=== PATIENT | female | born 1955 | race African-American/Black ===

== ENCOUNTER 2018-07-01 11:46 | Emergency (ER) | payer OTHER ==
[~2018-07-01] VITALS: Ht 170.2 cm; Wt 113.4 kg
[~2018-07-01 11:46] MED LIST: ALBU2.5V8 INH; AMOX1TAB58 PO; APIX5TAB PO; ASPI325T8 PO; AZIT250T6 PO; BECL8.7A6 IH; Diltiazem Hcl PO; FEXO180T16 PO; FISH1CAP PO; LOSA1TAB19 PO; LOVA40TA2 PO; MECL25TA PO; METF500T16 PO; MULT-208 PO; MULT-246 PO; OMEG300C PO; PRED50TA PO; RANI300C PO; VENTOLIN HFA18 GM INH
--- NOTE | 2018-07-01 12:13 | EKG ---
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
[2018-07-01 12:22] LABS: BASO # 0.1 x10^3/uL (0.0-0.2); BASO % 1 % (0-3); EOS # 0.1 x10^3/uL (0.0-0.7); EOS % 2 % (0-3); HEMATOCRIT 41.3 % (36.0-47.0); HEMOGLOBIN 14.2 g/dL (12.0-15.5); LYMPH # 3.6 x10^3/uL (1.0-4.8); LYMPH % 41 % (24-48); MEAN CORPUSCULAR HEMOGLOBIN 30 pg (25-35); MEAN CORPUSCULAR HGB CONC 34 g/dL (31-37); MEAN CORPUSCULAR VOLUME 88 fL (79-100); MONO # 0.6 x10^3/uL (0.0-1.1); MONO % 6 % (0-9); NEUT # 4.4 x10^3uL (1.8-7.7); NEUT % 51 % (31-73); PLATELET COUNT 330 x10^3/uL (140-400); RED BLOOD COUNT 4.67 x10^6/uL (3.50-5.40); RED CELL DISTRIBUTION WIDTH 12.8 % (11.5-14.5); WHITE BLOOD COUNT 8.8 x10^3/uL (4.0-11.0)
[2018-07-01 12:31] LABS: PROTHROMBIN TIME PATIENT 12.1 SEC (11.7-14.0)
--- NOTE | 2018-07-01 12:36 | RAD ---
EXAM: CHEST 1 VIEW History: Shortness of breath COMPARISON: 03/06/2016 TECHNIQUE: Single portable radiograph of the chest FINDINGS: The cardiac silhouette is unremarkable. The lungs are clear bilaterally. The costophrenic sulci are clear and well demarcated. IMPRESSION: No radiographic evidence of an acute cardiopulmonary process. Electronically signed by: Primo Cantrell MD (07/01/2018 12:31 PM) [facility]
[2018-07-01 12:44] LABS: CALCIUM 9.9 mg/dL (8.5-10.1); GFR 67.8; POTASSIUM 3.9 mmol/L (3.5-5.1)
[2018-07-01 12:46] LABS: D-DIMER 0.33 ug/mlFEU (0.00-0.50)
[2018-07-01 12:48] LABS: ALBUMIN 4.1 g/dL (3.4-5.0); ALBUMIN/GLOBULIN RATIO 1.1 (1.0-1.7); MAGNESIUM 2.4 mg/dL (1.8-2.4); TOTAL BILIRUBIN 0.4 mg/dL (0.2-1.0)
[2018-07-01] MEDS ORDERED: APIXABAN 5 MG TABLET. PO STA (13:35)
[2018-07-01 13:47] VITALS: BP 152/83
--- NOTE | 2018-07-01 13:47 | PHYS DOC ---
Past Medical History Past Medical History: A-Fib, Asthma, CVA, Diabetes-Type II, High Cholesterol, Hypertension, Stroke Past Surgical History: Cholecystectomy, Tonsillectomy Alcohol Use: None Drug Use: None Adult General Chief Complaint Chief Complaint: Palpitations [facility] Patient is a 62 year old F WITH CC OF PALPITATIONS, she felt this last night she felt a couple of time she woke up at 2 in the morning her heart was racing she didn't keep her track of her heart rate but it was going very fast she felt a little short of breath when she walked to the bathroom she was feeling just like her heart was racing no other chest pain. The symptoms resolved within a came back this morning and they resolved on the way to the emergency room but she was worried she has a history of atrial fibrillation she does take Cardizem she is on aspirin only because her insurance would not cover ELIQUIS she tells me. SYMPTOMS NOW RESOLVED Review of Systems Review of Systems Constitutional: Denies fever or chills [] Cardiovascular: No additional information not addressed in [facility] [] GI: Denies abdominal pain, nausea, vomiting, bloody stools or diarrhea [] : Denies dysuria or hematuria [] Musculoskeletal: Denies back pain or joint pain [] All other systems were reviewed and found to be within normal limits, except as documented in this note. Allergies Allergies Allergies Coded Allergies Type Severity Reaction Last Updated Verified ALBERT Inhibitors Allergy Intermediate cough 03/18/15 Yes levofloxacin Allergy Intermediate Rash 03/15/15 Yes Physical Exam Physical Exam Constitutional: Well developed, well nourished, no acute distress, non-toxic appearance. [] HENT: Normocephalic, atraumatic, bilateral external ears normal, oropharynx moist, no oral exudates, nose normal. [] Eyes: PERRLA, EOMI, conjunctiva normal, no discharge. [] Neck: Normal range of motion, no tenderness, supple, no stridor. [] Cardiovascular:Heart rate regular rhythm, no murmur [] Lungs & Thorax: Bilateral breath sounds clear to auscultation [] Abdomen: Bowel sounds normal, soft, no tenderness, no masses, no pulsatile masses. [] Skin: Warm, dry, no erythema, no rash. [] Back: No tenderness, no CVA tenderness. [] Extremities: No tenderness, no cyanosis, no clubbing, ROM intact, no edema. [] Neurologic: Alert and oriented X 3, normal motor function, normal sensory function, no focal deficits noted. [] Psychologic: Affect normal, judgement normal, mood normal. [] Current Patient Data Vital Signs Vital Signs Date Time Temp Pulse Resp B/P (MAP) Pulse Ox O2 Delivery O2 Flow Rate FiO2 07/01/18 13:20 78 145/77 (99) 96 Room Air 07/01/18 11:54 97.8 20 97.8 Lab Values Laboratory Tests Test 07/01/18 12:10 White Blood Count 8.8 x10^3/uL (4.0-11.0) Red Blood Count 4.67 x10^6/uL (3.50-5.40) Hemoglobin 14.2 g/dL (12.0-15.5) Hematocrit 41.3 % (36.0-47.0) Mean Corpuscular Volume 88 fL (79-100) Mean Corpuscular Hemoglobin 30 pg (25-35) Mean Corpuscular Hemoglobin Concent 34 g/dL (31-37) Red Cell Distribution Width 12.8 % (11.5-14.5) Platelet Count 330 x10^3/uL (140-400) Neutrophils (%) (Auto) 51 % (31-73) Lymphocytes (%) (Auto) 41 % (24-48) Monocytes (%) (Auto) 6 % (0-9) Eosinophils (%) (Auto) 2 % (0-3) Basophils (%) (Auto) 1 % (0-3) Neutrophils # (Auto) 4.4 x10^3uL (1.8-7.7) Lymphocytes # (Auto) 3.6 x10^3/uL (1.0-4.8) Monocytes # (Auto) 0.6 x10^3/uL (0.0-1.1) Eosinophils # (Auto) 0.1 x10^3/uL (0.0-0.7) Basophils # (Auto) 0.1 x10^3/uL (0.0-0.2) Prothrombin Time 12.1 SEC (11.7-14.0) Prothrombin Time INR 0.9 (0.8-1.1) D-Dimer (Bharti) 0.33 ug/mlFEU (0.00-0.50) Sodium Level 141 mmol/L (136-145) Potassium Level 3.9 mmol/L (3.5-5.1) Chloride Level 102 mmol/L (98-107) Carbon Dioxide Level 29 mmol/L (21-32) Anion Gap 10 (6-14) Blood Urea Nitrogen 14 mg/dL (7-20) Creatinine 1.0 mg/dL (0.6-1.0) Estimated GFR (Cockcroft-Gault) 67.8 BUN/Creatinine Ratio 14 (6-20) Glucose Level 132 mg/dL (70-99) H Calcium Level 9.9 mg/dL (8.5-10.1) Magnesium Level 2.4 mg/dL (1.8-2.4) Total Bilirubin 0.4 mg/dL (0.2-1.0) Aspartate Amino Transferase (AST) 20 U/L (15-37) Alanine Aminotransferase (ALT) 40 U/L (14-59) Alkaline Phosphatase 118 U/L (46-116) H Troponin I Quantitative < 0.017 ng/mL (0.000-0.055) SQ-Fnm-E-Type Natriuretic Peptide 8 pg/mL (0-124) Total Protein 8.0 g/dL (6.4-8.2) Albumin 4.1 g/dL (3.4-5.0) Albumin/Globulin Ratio 1.1 (1.0-1.7) Laboratory Tests 07/01/18 12:10 Laboratory Tests 07/01/18 12:10 EKG EKG []EKG shows a I suspect most likely a normal sinus rhythm there is somewhat of a poor baseline but I clearly see P waves it is regular no STEMI Radiology/Procedures Radiology/Procedures [] Impressions: EXAM: CHEST 1 VIEW History: Shortness of breath COMPARISON: 03/06/2016 TECHNIQUE: Single portable radiograph of the chest FINDINGS: The cardiac silhouette is unremarkable. The lungs are clear bilaterally. The costophrenic sulci are clear and well demarcated. IMPRESSION: No radiographic evidence of an acute cardiopulmonary process. Electronically signed by: Primo Cantrell MD (07/01/2018 12:31 PM) [facility] DICTATED and SIGNED BY: PRIMO CANTRELL MD DATE: 07/01/18 1221 Course & Med Decision Making Course & Med Decision Making Pertinent Labs and Imaging studies reviewed. (See chart for details) []D-dimer labs normal troponin negative patient is in sinus for some throughout the emergency room visit. I did discuss witH KARINA FROM CARDIOLOGY, HE WAS ABLE TO CALL AND MAKE APPOINTMENT FOR 945 AM TOMORROW. I DID GIVE SINGLE DOSE ELIQUIS IN THE ER. Dragon Disclaimer Dragon Disclaimer This electronic medical record was generated, in whole or in part, using a voice recognition dictation system. Departure Departure Impression: Primary Impression: Palpitations Disposition: HOME, SELF-CARE Condition: STABLE Referrals: CORRY BROWNE (PCP) CLOVIS MAYER MD Jul 01, 2018 13:47
== END 2018-07-01 14:02 | disposition home or self-care (01) ==
LOC: ER 11:46
DX: R00.2 Palpitations (principal); R06.02 Shortness of breath; I48.91 Unspecified atrial fibrillation; J45.909 Unspecified asthma, uncomplicated; E11.9 Type 2 diabetes mellitus without complications; I10 Essential (primary) hypertension; E78.00 Pure hypercholesterolemia, unspecified; Z90.49 Acquired absence of other specified parts of digestive tract; Z86.73 Personal history of transient ischemic attack (TIA), and cerebral infarction without residual deficits; Z88.1 Allergy status to other antibiotic agents; Z88.8 Allergy status to other drugs, medicaments and biological substances
CPT/HCPCS: 36415; 71045; 80053; 83735; 83880; 84484; 85025; 85379; 85610; 93005; 99284-25

== ENCOUNTER → 2018-08-11 | Outpatient (CLI) | payer OTHER ==
--- NOTE | 2018-08-11 09:57 | CARD ---
MR#: [id number] Date of Study: 08/11/2018 Ordering Physician: LYUDMILA CAI, Referring Physician: LYUDMILA CAI, Tech: Carmen Christopher APPROVED REPORT EXAM: Two-dimensional and M-mode echocardiogram with Doppler and color Doppler. Other Information Quality : AverageHR: 75bpm INDICATION Dyspnea RISK FACTORS Hypertension Hyperlipidemia Diabetes 2D DIMENSIONS RVDd3.8 (2.9-3.5cm)Left Atrium(2D)3.4 (1.6-4.0cm) IVSd1.1 (0.7-1.1cm)Aortic Root(2D)2.6 (2.0-3.7cm) LVDd4.7 (3.9-5.9cm)LVOT Diameter2.3 (1.8-2.4cm) PWd1.3 (0.7-1.1cm)LVDs2.7 (2.5-4.0cm) FS (%) 41.1 %SV72.7 ml LVEF(%)72.0 (>50%) Aortic Valve AoV Peak Indra.180.9cm/sAoV VTI40.0cm AO Peak GR.13.1mmHgLVOT Peak Indra.140.3cm/s LVOT VTI 31.42cmAO Mean GR.8mmHg CARLOS (VMAX)2.07uu9LVL (VTI)3.22cm2 Mitral Valve MV E Ctmdwsnn079.7cm/sMV DECEL AJUB102ys MV A Vuwvuthv708.1cm/sMV OBX80my E/A Ratio0.8MVA (PHT)4.25cm2 TDI E/Lateral E'11.9E/Medial E'14.1 Pulmonary Valve PV Peak Cofykilw568.0cm/sPV Peak Grad.5mmHg Tricuspid Valve TR P. Mwtbmxoc092hn/sRAP RWGSOBXX6rcCh TR Peak Gr.87qvGxQIEG24bdKt Pulmonary Vein S1 Iaxxtchm50.5cm/sD2 Eswkkros89.4cm/s PVa doubsjfu993rxta LEFT VENTRICLE The left ventricle is normal size. There is mild to moderate concentric left ventricular hypertrophy. The left ventricular systolic function is normal. The Ejection Fraction is 55-60%. There is normal L V segmental wall motion. Transmitral Doppler flow pattern is Grade I-abnormal relaxation pattern. RIGHT VENTRICLE The right ventricle is normal size. There is normal right ventricular wall thickness. The right ventr icular systolic function is normal. ATRIA The left atrium is mildly dilated. The right atrium is borderline dilated. The interatrial septum is intact with no evidence for an atrial septal defect or patent foramen ovale as noted on 2-D or Dopple r imaging. AORTIC VALVE The aortic valve is normal in structure and function. Doppler and Color Flow revealed no significant aortic regurgitation. There is no significant aortic valvular stenosis. MITRAL VALVE The mitral valve is normal in structure and function. There is no evidence of mitral valve prolapse. There is no mitral valve stenosis. Doppler and Color-flow revealed trace mitral regurgitation. TRICUSPID VALVE The tricuspid valve is normal in structure and function. Doppler and Color Flow revealed mild tricusp id regurgitation with an estimated PAP of 36 mmHg. There is no tricuspid valve stenosis. PULMONIC VALVE The pulmonic valve is not well visualized. Doppler and Color Flow revealed no pulmonic valvular regur gitation. GREAT VESSELS The aortic root is normal in size. The IVC was not visualized. PERICARDIAL EFFUSION There is no evidence of significant pericardial effusion. Critical Notification Critical Value: No <Conclusion> The left ventricular systolic function is normal. The Ejection Fraction is 55-60%. There is normal LV segmental wall motion. Transmitral Doppler flow pattern is Grade I-abnormal relaxation pattern. Trace mitral regurgitation. Mild tricuspid regurgitation with an estimated PAP of 36 mmHg. There is no evidence of significant pericardial effusion. Signed by : Hunter Jett, Electronically Approved : 08/11/2018 09:56:58
== END | disposition home or self-care (01) ==
LOC: NM 07:28
PROVIDERS: ATTEND Internal Medicine Cardiovascular Disease
DX: I36.1 Nonrheumatic tricuspid (valve) insufficiency (principal); I11.9 Hypertensive heart disease without heart failure; E78.5 Hyperlipidemia, unspecified; E11.9 Type 2 diabetes mellitus without complications; R00.8 Other abnormalities of heart beat
CPT/HCPCS: 93306

== ENCOUNTER 2019-03-09 13:24 | Emergency (ER) | payer OTHER ==
[~2019-03-09] VITALS: Ht 167.6 cm; Wt 122.5 kg
[2019-03-09] MEDS ORDERED: NAPROXEN 500 MG TABLET PO STA (13:52)
[2019-03-09] MEDS ORDERED: HYDROcodone/APAP 5/325MG 1 TAB TABLET PO ONE (14:00)
[2019-03-09 14:13] VITALS: BP 163/88
--- NOTE | 2019-03-09 14:14 | RAD ---
Examination: ANKLE RIGHT 3V History: Pain, fell Comparison/Correlation: None Findings: Total of 3 images of the right ankle were obtained. Soft tissue swelling about the malleoli noted. Ankle joint mortise is unremarkable. Small calcaneal spur is present. Subtle avulsion fracture involving the lateral malleolus is questioned. Bony densities adjacent to the medial malleolus are of indeterminate significance and age. Impression: Possibility of avulsion fracture involving the lateral malleolus is raised but of indeterminate age. Soft tissue swelling. Electronically signed by: Vishal Teran MD (03/09/2019 2:11 PM) [facility]
[2019-03-09] MEDS ORDERED: HYDR-3164 PO (14:55)
--- NOTE | 2019-03-09 14:55 | PHYS DOC ---
Past Medical History Past Medical History: A-Fib, Asthma, CVA, Diabetes-Type II, High Cholesterol, Hypertension, Stroke Past Surgical History: Cholecystectomy, Tonsillectomy Alcohol Use: None Drug Use: None Adult General Chief Complaint Chief Complaint: ANKLE PROBLEM HPI HPI Patient is a 63 year old male with history of diabetes type 2, hypertension, high cholesterol, A. fib, who presents to the ED today complaining 10 out of 10 left lateral ankle pain that began today after she stepped on uneven surface and twisted her left ankle. Patient states the pain is worse on weight bearing. Denies anything specifically alleviating the pain. Describes the pain as sharp and constant. Review of Systems Review of Systems Constitutional: Denies fever or chills [] Musculoskeletal: Reports left ankle pain Integument: Denies rash or skin lesions [] Neurologic: Denies headache, focal weakness or sensory changes [] All other systems were reviewed and found to be within normal limits, except as documented in this note. Current Medications Current Medications Current Medications Medications (Trade) Dose Ordered Sig/Rebecca Start Time Stop Time Status Last Admin Dose Admin Acetaminophen/ Hydrocodone Bitart (Lortab 5/325) 2 tab 1X ONCE 03/09/19 14:00 03/09/19 14:01 DC 03/09/19 14:20 2 TAB Naproxen (Naprosyn) 500 mg 1X STAT 03/09/19 13:52 03/09/19 13:53 DC 03/09/19 14:20 500 MG Allergies Allergies Allergies Coded Allergies Type Severity Reaction Last Updated Verified ALBERT Inhibitors Allergy Intermediate cough 03/18/15 Yes levofloxacin Allergy Intermediate Rash 03/15/15 Yes Physical Exam Physical Exam Constitutional: Well developed, well nourished, no acute distress, non-toxic appearance. [] Skin: Warm, dry, no erythema, no rash. [] Back: No tenderness, no CVA tenderness. [] Extremities: Left ankle with moderate amount of soft tissue swelling specifically on the lateral aspect. Tenderness on palpation of the left lateral ankle. Limited range of motion to the left ankle due to pain. +2 left pedal pulse. Cap refill less than 2 seconds the left lower extremity. Neurologic: Alert and oriented X 3, normal motor function, normal sensory function, no focal deficits noted. [] Psychologic: Affect normal, judgement normal, mood normal. [] Current Patient Data Vital Signs Vital Signs Date Time Temp Pulse Resp B/P (MAP) Pulse Ox O2 Delivery O2 Flow Rate FiO2 03/09/19 14:13 98.2 80 18 163/88 (113) 96 Room Air 98.2 EKG EKG [] Radiology/Procedures Radiology/Procedures []PROCEDURE: ANKLE RIGHT 3V Examination: ANKLE RIGHT 3V History: Pain, fell Comparison/Correlation: None Findings: Total of 3 images of the right ankle were obtained. Soft tissue swelling about the malleoli noted. Ankle joint mortise is unremarkable. Small calcaneal spur is present. Subtle avulsion fracture involving the lateral malleolus is questioned. Bony densities adjacent to the medial malleolus are of indeterminate significance and age. Impression: Possibility of avulsion fracture involving the lateral malleolus is raised but of indeterminate age. Soft tissue swelling. Electronically signed by: Vishal Kasper MD (03/09/2019 2:11 PM) [facility] DICTATED and SIGNED BY: VISHAL KASPER MD DATE: 03/09/19 1411 Course & Med Decision Making Course & Med Decision Making Pertinent Labs and Imaging studies reviewed. (See chart for details) This is a 63-year-old female patient presenting to the ED today with left ankle pain after twisting her ankle. Left ankle x-rays interpreted by radiologist were noted for possible avulsion fracture of the lateral malleolus age indeterminate. Patient was placed in a stirrup and posterior leg splint by the ED RN, neurovascular exam done by me is intact. Ice elevation encouraged. Follow-up with orthopedic doctor in the next 1 week. Dragon Disclaimer Dragon Disclaimer This electronic medical record was generated, in whole or in part, using a voice recognition dictation system. Departure Departure Impression: Primary Impression: Avulsion fracture of lateral malleolus Disposition: HOME, SELF-CARE Condition: STABLE Referrals: CORRY BROWNE (PCP) LUIS CASTILLO MD follow up in the course of this week Patient Instructions: Ankle Fracture with Rehab-SportsMed Additional Instructions: You were evaluated in the emergency room and noted to have an avulsion fracture of the left lateral malleolus/left ankle ice and elevate the extremity. Take the prescribed pain medicine as needed for pain. Please contact the provided orthopedic doctor and set up a follow-up appointment in the course of this week. Scripts Hydrocodone/Apap 5-325 (NORCO 5-325 TABLET) 1 Each Tablet 1 TAB PO Q6HRS, #25 TAB Prov: TEAGAN SEBASTIAN APRN 03/09/19 Problem Qualifiers Primary Impression: Avulsion fracture of lateral malleolus Encounter type: initial encounter Fracture type: closed Laterality: left Qualified Codes: S82.62XA - Displaced fracture of lateral malleolus of left fibula, initial encounter for closed fracture TEAGAN SEBASTIAN APRN Mar 09, 2019 14:55
--- NOTE | 2019-03-10 09:55 | RAD ---
Examination: ANKLE LEFT 3V History: Pain, fell Comparison/Correlation: None Findings: Total of 3 images of the left ankle were obtained. Soft tissue swelling about the malleoli noted. Ankle joint mortise is unremarkable. Small calcaneal spur is present. Subtle avulsion fracture involving the lateral malleolus is questioned. Bony densities adjacent to the medial malleolus are of indeterminate significance and age. Impression: Possibility of avulsion fracture involving the lateral malleolus is raised but of indeterminate age. Soft tissue swelling. MTDD
== END 2019-03-09 15:22 | disposition home or self-care (01) ==
LOC: ER 13:24
DX: S82.62XA Displaced fracture of lateral malleolus of left fibula, initial encounter for closed fracture (principal); I48.91 Unspecified atrial fibrillation; J45.909 Unspecified asthma, uncomplicated; E11.9 Type 2 diabetes mellitus without complications; E78.00 Pure hypercholesterolemia, unspecified; I10 Essential (primary) hypertension; Z86.73 Personal history of transient ischemic attack (TIA), and cerebral infarction without residual deficits; Z88.1 Allergy status to other antibiotic agents; Z88.8 Allergy status to other drugs, medicaments and biological substances; W18.31XA Fall on same level due to stepping on an object, initial encounter; Y93.89 Activity, other specified; Y92.89 Other specified places as the place of occurrence of the external cause; Y99.8 Other external cause status
CPT/HCPCS: 29515; 73610; 99284

== ENCOUNTER → 2019-09-22 | Outpatient (CLI) | payer BC ==
[~2019-09-22] MED LIST changes: +HYDR-3164 PO
--- NOTE | 2019-09-22 13:18 | KCIC ---
Left shoulder 5 views: Reason for examination: Primary osteoarthritis of the left shoulder with pain for 6 to 12 months and decreased range of motion. No acute fracture or dislocation is evident. Bone density appears be normal and no abnormal periosteal reaction is seen. Joint spaces appear to be fairly well-maintained. There is however some bony density around the inferior margin of the humeral head. This could represent hypertrophic changes but a joint body cannot be excluded. There is also a small joint body anterior to the glenoid. IMPRESSION: Bone density on the inferior margin of the humeral head which may represent hypertrophic changes off the humeral head but joint body cannot be excluded. Additional small joint body anterior to the glenoid. Further evaluation with CT may be helpful. Electronically signed by: Niru Wolfe MD (09/22/2019 1:15 PM) [id number]
== END | disposition home or self-care (01) ==
LOC: KCIC 11:54
PROVIDERS: ATTEND Physician Assistant
DX: M19.012 Primary osteoarthritis, left shoulder (principal)
CPT/HCPCS: 73030

== ENCOUNTER → 2021-01-09 | Outpatient (CLI) | payer BC ==
[~2021-01-09] MED LIST changes: +LIDOCAINE 1% Multi-Dose 20 ML VIAL. INJ ONE; +LIDOCAINE 2%/EPI 1:100,000 20 ML VIAL. INJ ONE
--- NOTE | 2021-01-09 17:15 | RAD ---
MG STERO NEEDLE LOC BRST RT, MG DIAGNOSTICUNILAT MAMMO Clinical Indication: Reason: RIGHT BREAST CALCIFICATIONS, lower inner right breast. Comparison: Bilateral diagnostic mammogram December 14, 2020, [facility]. Findings: The risks including bleeding, infection, damage to blood vessel, and pain; alternatives, and benefits of the procedure are discussed with the patient. Written informed consent is obtained. A timeout pro cedure was performed. Patient is positioned in upright position. A medial approach is utilized. Stereotactic views were obt ained. Skin site is clean in normal sterile fashion. 1% lidocaine is used for superficial anesthesia. 1% lidocaine with epinephrine is used for deep anesthesia. Using sterile technique and stereotactic guidance, vacuum assisted core biopsy samples were obtained. Biopsy marker is deployed. The needle is removed. Hemostasis achieved. Patient tolerated the procedu re well. There is no immediate complication. Specimen radiograph demonstrates microcalcifications in the sample. Postprocedure CC and ML mammogram views obtained. The biopsy clip is at the location of the previously seen microcalcifications. IMPRESSION: Stereotactic guided biopsy of microcalcifications. Pathology is pending. Electronically signed by: Mo Khanna MD (01/09/2021 5:13 PM) [id number]
--- NOTE | 2021-01-10 16:07 | PATHOLOGY ---
[facility] Accession Number: [id number] . 01 Material submitted: . breast - RIGHT BREAST TISSUE. Modifiers: right . 01 Clinical history: . RIGHT BREAST CALCIFICATIONS RIGHT BREAST STEREOTACTIC BIOPSY . 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 (JPM:pit; 01/10/2021) [facility] [place] 01/10/2021 1555 Local . 02 Comment: There is no atypia or evidence of malignancy. (JPM:pit; 01/10/2021) . 02 Electronically signed: . Dallas Leong MD, Pathologist NPI- [id number] . 01 Gross description: . The specimen is received in formalin, labeled "Serafin, Tita O and right breast". It consists of multiple yellow-white, irregular fibrofatty soft tissue segment measuring 2.7 x 1.5 x 0.3 cm in aggregate. The specimen is entirely submitted in A1-A3. . The specimen is removed from the patient at 1335 and placed in formalin at 1345 on 01/09/2021. The specimen is removed from formalin at 2340. Total time formalin: 10 hours 5 minutes (MRF; 01/09/2021) MFE/MFE 01/09/2021 1801 Local . 02 Pathologist provided ICD-10: D24.1, N60.41, N60.31 . 02 CPT . 291299 Specimen Comment: A courtesy copy of this report has been sent to [phone], [phone] Specimen Comment: [id number] Specimen Comment: Report sent to / DR SARMIENTO Performed at: [address] [place] [address] [address] [facility] [address], [place], [place] [id number] MD Jc Núñez MD Phone: [phone] Performed at: [address] [id number] MD Dallas Leong MD Phone: [phone]
== END | disposition home or self-care (01) ==
LOC: MAMMO 12:14
PROVIDERS: ATTEND Surgery
DX: R92.1 Mammographic calcification found on diagnostic imaging of breast (principal); R92.8 Other abnormal and inconclusive findings on diagnostic imaging of breast; I10 Essential (primary) hypertension; E78.00 Pure hypercholesterolemia, unspecified; I48.91 Unspecified atrial fibrillation; E11.9 Type 2 diabetes mellitus without complications; K21.9 Gastro-esophageal reflux disease without esophagitis; M19.90 Unspecified osteoarthritis, unspecified site; J45.909 Unspecified asthma, uncomplicated; G47.30 Sleep apnea, unspecified; Z79.82 Long term (current) use of aspirin; Z79.84 Long term (current) use of oral hypoglycemic drugs; Z79.899 Other long term (current) drug therapy; Z98.890 Other specified postprocedural states; Z88.1 Allergy status to other antibiotic agents; Z82.49 Family history of ischemic heart disease and other diseases of the circulatory system; Z83.3 Family history of diabetes mellitus
CPT/HCPCS: 19081; 77065

== ENCOUNTER → 2021-06-30 | Outpatient (CLI) | payer BC ==
[~2021-06-30] MED LIST changes: -LIDOCAINE 1% Multi-Dose 20 ML VIAL. INJ ONE; -LIDOCAINE 2%/EPI 1:100,000 20 ML VIAL. INJ ONE
--- NOTE | 2021-06-30 11:50 | CARD ---
MR#: [id number] Date of Study: 06/30/2021 Ordering Physician: LYUDMILA CAI, Referring Physician: LYUDMILA CAI, Tech: Chaparrita Kamara [facility] APPROVED REPORT EXAM: Two-dimensional and M-mode echocardiogram with Doppler and color Doppler. Other Information Quality : AverageHR: 99bpm Rhythm : NSR INDICATION RISK FACTORS Hypertension Obesity Hyperlipidemia 2D DIMENSIONS RVDd3.6 (2.9-3.5cm)Left Atrium(2D)3.5 (1.6-4.0cm) IVSd1.1 (0.7-1.1cm)Aortic Root(2D)3.0 (2.0-3.7cm) LVDd4.6 (3.9-5.9cm)LVOT Diameter2.1 (1.8-2.4cm) PWd1.1 (0.7-1.1cm)LVDs2.6 (2.5-4.0cm) FS (%) 42.8 %SV72.3 ml LVEF(%)73.9 (>50%) Aortic Valve AoV Peak Indra.230.1cm/sAoV VTI44.7cm AO Peak GR.21.2mmHgLVOT Peak Indra.156.0cm/s AO Mean GR.9mmHgAVA (VMAX)2.41cm2 Mitral Valve MV E Lzmbnabv63.7cm/s Pulmonary Valve PV Peak Jhqujnyd226.3cm/s Tricuspid Valve TR P. [place]151bj/sTR Peak Gr.31mmHg LEFT VENTRICLE The left ventricle is normal size. There is mild concentric left ventricular hypertrophy. The left ve ntricular systolic function is normal. Estimated ejection fraction 65%. There is normal LV segmenta l wall motion. Transmitral Doppler flow pattern is Grade I-abnormal relaxation pattern. RIGHT VENTRICLE The right ventricle is normal size. There is normal right ventricular wall thickness. The right ventr icular systolic function is normal. ATRIA The left atrium size is normal. The right atrium size is normal. The interatrial septum is intact wit h no evidence for an atrial septal defect or patent foramen ovale as noted on 2-D or Doppler imaging. AORTIC VALVE The aortic valve is normal in structure and function. Doppler and Color Flow revealed trace aortic re gurgitation. There is no significant aortic valvular stenosis. MITRAL VALVE The mitral valve is normal in structure and function. There is no evidence of mitral valve prolapse. There is no mitral valve stenosis. Doppler and Color-flow revealed trace mitral regurgitation. TRICUSPID VALVE The tricuspid valve is normal in structure and function. Doppler and Color Flow revealed mild tricusp id regurgitation. Estimated PAP 35 mmHg. There is no tricuspid valve stenosis. PULMONIC VALVE The pulmonary valve is normal in structure and function. GREAT VESSELS The aortic root is normal in size. The ascending aorta is normal in size. The IVC is normal in size a nd collapses >50% with inspiration. PERICARDIAL EFFUSION There is no evidence of significant pericardial effusion. Critical Notification Critical Value: No <Conclusion> The left ventricular systolic function is normal. Estimated ejection fraction 65%. There is normal LV segmental wall motion. Trace mitral regurgitation. Mild tricuspid regurgitation. Estimated PAP 35 mmHg. There is no evidence of significant pericardial effusion. Signed by : Hunter Jett, Electronically Approved : 06/30/2021 11:50:20
== END ==
LOC: ECHO 09:16
PROVIDERS: ATTEND Internal Medicine Cardiovascular Disease
DX: I36.1 Nonrheumatic tricuspid (valve) insufficiency (principal); I51.7 Cardiomegaly; I48.0 Paroxysmal atrial fibrillation
CPT/HCPCS: 93306

== ENCOUNTER 2021-10-26 11:27 | Emergency (ER) | payer BC ==
[~2021-10-26] VITALS: Ht 170.2 cm; Wt 113.6 kg
[~2021-10-26 11:27] MED LIST changes: +FEXO-213 PO; -FEXO180T16 PO
[2021-10-26 12:11] LABS: BASO # 0.1 x10^3/uL (0.0-0.2); BASO % 1 % (0-3); EOS # 0.2 x10^3/uL (0.0-0.7); EOS % 2 % (0-3); HEMATOCRIT 37.6 % (36.0-47.0); HEMOGLOBIN 12.5 g/dL (12.0-15.5); LYMPH # 2.5 x10^3/uL (1.0-4.8); LYMPH % 32 % (24-48); MEAN CORPUSCULAR HEMOGLOBIN 30 pg (25-35); MEAN CORPUSCULAR HGB CONC 33 g/dL (31-37); MEAN CORPUSCULAR VOLUME 89 fL (79-100); MONO # 0.7 x10^3/uL (0.0-1.1); MONO % 9 % (0-9); NEUT # 4.5 x10^3/uL (1.8-7.7); NEUT % 56 % (31-73); PLATELET COUNT 336 x10^3/uL (140-400); RED BLOOD COUNT 4.22 x10^6/uL (3.50-5.40); RED CELL DISTRIBUTION WIDTH 13.7 % (11.5-14.5); WHITE BLOOD COUNT 7.9 x10^3/uL (4.0-11.0)
[2021-10-26 12:29] LABS: CALCIUM 9.5 mg/dL (8.5-10.1); CREATININE 0.7 mg/dL (0.6-1.0)
[2021-10-26] MEDS ORDERED: IV NORMAL SALINE 1000ML BAG 1,000 ML IV ONE (12:30)
--- NOTE | 2021-10-26 12:31 | RAD ---
EXAM: Chest, single view. HISTORY: Presyncope. COMPARISON: 07/01/2018 FINDINGS: A frontal view of the chest is obtained. There is no infiltrate, pleural effusion or pneumo thorax. The heart is normal in size. IMPRESSION: No acute pulmonary finding. Electronically signed by: Lanie Cordova MD (10/26/2021 12:28 PM) [id number]
[2021-10-26 12:37] LABS: ALBUMIN 3.9 g/dL (3.4-5.0); MAGNESIUM 2.2 mg/dL (1.8-2.4); TOTAL BILIRUBIN 0.5 mg/dL (0.2-1.0); TOTAL PROTEIN 7.7 g/dL (6.4-8.2)
[2021-10-26] MEDS ORDERED: IOHEXOL 350 MG/ML 100 ML VIAL. IV ONE (13:15)
[2021-10-26] MEDS ORDERED: CONTRAST GIVEN. MC PRN (13:30)
--- NOTE | 2021-10-26 14:35 | RAD ---
EXAMINATION: CTA Chest With IV contrast INDICATION:66 years, Female, shortness of breath, presyncope, evaluate for pulmonary embolism. COMPARISON: None. TECHNIQUE: Spiral CTA was obtained from the jugular notch through the posterior costophrenic recess. 3-D MIPS, sagittal and coronal reformats were obtained. Exposure: One or more of the following individualized dose reduction techniques were utilized for thi s examination: 1. Automated exposure control 2. Adjustment of the mA and/or kV according to patient size 3. Use of iterative reconstruction technique. FINDINGS: LUNGS/PLEURA: Central airways are patent. Dependent subsegmental atelectasis in bibasilar lungs. No f ocal consolidation, pleural effusion or pneumothorax. No suspicious pulmonary nodule. Calcified granu ambar in the left lower lobe MEDIASTINUM: No pathologic mediastinal or hilar adenopathy. The thoracic aorta and pulmonary arteries are normal in caliber. Evaluation for pulmonary embolism is limited due to contrast bolus timing. No evidence of pulmonary embolism to the proximal segmental levels. The heart is normal in size. No per icardial effusion. Mild calcified coronary atherosclerosis. The visualized thyroid and the esophagus are unremarkable. AXILLA/SOFT TISSUE: No supraclavicular or axillary adenopathy. Regional soft tissues are within ilir l limits. UPPER ABDOMEN: Diffuse hepatic steatosis. Indeterminate 2.3 cm left adrenal nodule. Cholecystectomy. BONES: No evidence of acute fractures or aggressive osseous lesions. Multilevel degenerative changes in the spine. IMPRESSION: 1. Evaluation for pulmonary embolism is limited due to contrast bolus timing. No pulmonary embolism to the proximal segmental levels. 2. Diffuse hepatic steatosis. 3. Indeterminate 2.3 cm left adrenal nodule. Further evaluation could be obtained with CT or MRI adr enal mass protocol. Electronically signed by: Andres Fernandes MD (10/26/2021 2:33 PM) [id number]
[2021-10-26 15:00] VITALS: BP 142/67
--- NOTE | 2021-10-26 15:37 | PHYS DOC ---
Past Medical History Past Medical History: A-Fib, Asthma, CVA, Diabetes-Type II, High Cholesterol, Hypertension, Stroke Past Surgical History: Cholecystectomy, Tonsillectomy Additional Past Surgical Histo: RIGHT KNEE Smoking Status: Never Smoker Alcohol Use: None Drug Use: None General Adult EDM: Chief Complaint: DIZZY/LIGHT HEADED HPI: HPI: Patient is a 66 year old female with history of atrial fibrillation who presents with presyncopal episode while driving soon before presenting to the emergency department. Patient is at baseline while in the emergency department. Patient states that while she was driving, she became lightheaded and she felt short of breath. States that she was able to pull off the road and stop. She called EMS from that location. She her vital signs are stable however she is a little bit tachycardic, she is not in atrial fibrillation. She does have a history of atrial fibrillation for which she takes Eliquis for. Otherwise she is being followed by Dr. Kendall and Dr. Jorge. Patient states that the episode only lasted 10 seconds. Otherwise she is hemodynamically stable. No eliciting or alleviating factors. No concurrent symptoms. Review of Systems: Review of Systems: Constitutional: Denies fever or chills. [] Eyes: Denies change in visual acuity. [] HENT: Denies nasal congestion or sore throat. [] Respiratory: Denies cough, + shortness of breath. [] Cardiovascular: Denies chest pain or edema. [] GI: Denies abdominal pain, nausea, vomiting, bloody stools or diarrhea. [] : Denies dysuria. [] Musculoskeletal: Denies back pain or joint pain. [] Integument: Denies rash. [] Neurologic: Denies headache, focal weakness or sensory changes. [] Endocrine: Denies polyuria or polydipsia. [] Lymphatic: Denies swollen glands. [] Psychiatric: Denies depression or anxiety. [] Heart Score: C/O Chest Pain: No Risk Factors: Risk Factors: DM, Current or recent (<one month) smoker, HTN, HLP, family history of CAD, obesity. Risk Scores: Score 0 - 3: 2.5% MACE over next 6 weeks - Discharge Home Score 4 - 6: 20.3% MACE over next 6 weeks - Admit for Clinical Observation Score 7 - 10: 72.7% MACE over next 6 weeks - Early Invasive Strategies Current Medications: Current Medications Medications (Trade) Dose Ordered Sig/Rebecca Start Time Stop Time Status Last Admin Dose Admin Info (CONTRAST GIVEN -- Rx MONITORING) 1 each PRN DAILY PRN 10/26/21 13:30 10/28/21 13:29 Iohexol (Omnipaque 350 Mg/ml) 100 ml 1X ONCE 10/26/21 13:15 10/26/21 13:16 DC 10/26/21 13:36 100 ML Sodium Chloride 1,000 ml @ 1,000 mls/hr 1X ONCE 10/26/21 12:30 10/26/21 13:29 DC 10/26/21 12:30 1,000 MLS/HR Allergies: Allergies: Allergies Coded Allergies Type Severity Reaction Last Updated Verified ALBERT Inhibitors Allergy Intermediate cough 03/18/15 Yes levofloxacin Allergy Intermediate Rash 03/15/15 Yes Physical Exam: PE: Constitutional: Well developed, well nourished, no acute distress, non-toxic appearance. [] HENT: Normocephalic, atraumatic, bilateral external ears normal, oropharynx moist, no oral exudates, nose normal. [] Eyes: PERRLA, EOMI, conjunctiva normal, no discharge. [] Neck: Normal range of motion, no tenderness, supple, no stridor. [] Cardiovascular:Heart rate regular rhythm, no murmur [] Lungs & Thorax: Bilateral breath sounds clear to auscultation [] Abdomen: Bowel sounds normal, soft, no tenderness, no masses, no pulsatile masses. [] Skin: Warm, dry, no erythema, no rash. [] Back: No tenderness, no CVA tenderness. [] Extremities: No tenderness, no cyanosis, no clubbing, ROM intact, no edema. [] Neurologic: Alert and oriented X 3, normal motor function, normal sensory function, no focal deficits noted. [] Psychologic: Affect normal, judgement normal, mood normal. [] Current Patient Data: Labs: Laboratory Tests Test 10/26/21 11:50 White Blood Count 7.9 x10^3/uL (4.0-11.0) Red Blood Count 4.22 x10^6/uL (3.50-5.40) Hemoglobin 12.5 g/dL (12.0-15.5) Hematocrit 37.6 % (36.0-47.0) Mean Corpuscular Volume 89 fL (79-100) Mean Corpuscular Hemoglobin 30 pg (25-35) Mean Corpuscular Hemoglobin Concent 33 g/dL (31-37) Red Cell Distribution Width 13.7 % (11.5-14.5) Platelet Count 336 x10^3/uL (140-400) Neutrophils (%) (Auto) 56 % (31-73) Lymphocytes (%) (Auto) 32 % (24-48) Monocytes (%) (Auto) 9 % (0-9) Eosinophils (%) (Auto) 2 % (0-3) Basophils (%) (Auto) 1 % (0-3) Neutrophils # (Auto) 4.5 x10^3/uL (1.8-7.7) Lymphocytes # (Auto) 2.5 x10^3/uL (1.0-4.8) Monocytes # (Auto) 0.7 x10^3/uL (0.0-1.1) Eosinophils # (Auto) 0.2 x10^3/uL (0.0-0.7) Basophils # (Auto) 0.1 x10^3/uL (0.0-0.2) D-Dimer (Bharti) 0.74 ug/mlFEU (0.00-0.50) H Sodium Level 142 mmol/L (136-145) Potassium Level 4.0 mmol/L (3.5-5.1) Chloride Level 104 mmol/L (98-107) Carbon Dioxide Level 26 mmol/L (21-32) Anion Gap 12 (6-14) Blood Urea Nitrogen 21 mg/dL (7-20) H Creatinine 0.7 mg/dL (0.6-1.0) Estimated GFR (Cockcroft-Gault) 101.0 BUN/Creatinine Ratio 30 (6-20) H Glucose Level 98 mg/dL (70-99) Calcium Level 9.5 mg/dL (8.5-10.1) Magnesium Level 2.2 mg/dL (1.8-2.4) Total Bilirubin 0.5 mg/dL (0.2-1.0) Aspartate Amino Transferase (AST) 23 U/L (15-37) Alanine Aminotransferase (ALT) 39 U/L (14-59) Alkaline Phosphatase 100 U/L (46-116) Troponin I High Sensitivity 8 ng/L (4-50) LG-Wgt-G-Type Natriuretic Peptide 23 pg/mL (0-124) Total Protein 7.7 g/dL (6.4-8.2) Albumin 3.9 g/dL (3.4-5.0) Albumin/Globulin Ratio 1.0 (1.0-1.7) Laboratory Tests 10/26/21 11:50 Laboratory Tests 10/26/21 11:50 Vital Signs: Vital Signs Date Time Temp Pulse Resp B/P (MAP) Pulse Ox O2 Delivery O2 Flow Rate FiO2 10/26/21 15:00 94 142/67 (92) 98 Room Air 10/26/21 11:39 97.7 18 97.7 EKG: EKG: [] Normal sinus rhythm, heart rate 94 Radiology/Procedures: Radiology/Procedures: Chest x-ray within normal limits, CT angio of the chest without any evidence of pulmonary embolism Impression: Presyncope, vasovagal episode, atrial fibrillation Course & Med Decision Making: Course & Med Decision Making Pertinent Labs and Imaging studies reviewed. (See chart for details) 66-year-old female with history of atrial fibrillation, seen and evaluated by myself. Patient is stable at the time of exam. Serum labs ordered. No abnormalities on laboratory findings besides D-dimer. CT angio of the chest ordered, within normal limits. CT scan within normal limits. Patient likely had presyncopal episode secondary to combination of mild dehydration as well as atrial fibrillation. Patient heart rate seems to be elevated, may need to visit residential service technician, Dr. Kendall, to adjust medications. Patient is currently stable. Discussed findings with patient. Patient comfortable with going home and following up outpatient with Dr. Knedall. Patient feels much better after 1 L normal saline, likely dehydration is a c ontributing factor. Patient discharged in hemodynamically stable condition, all questions answered, patient given strict ER precautions. Eleazar Disclaimer: Eleazar Disclaimer: This electronic medical record was generated, in whole or in part, using a voice recognition dictation system. Departure Departure Impression: Primary Impression: Vaso vagal episode Additional Impression: Afib Disposition: HOME / SELF CARE / HOMELESS Condition: GOOD Patient Instructions: Atrial Fibrillation, [id number] Additional Instructions: Follow-up with Dr. Kendall Drink plenty of fluids Take all of your medications Continue to take your blood pressure and heart rate at home BETZAIDA SANTIAGO MD October 26, 2021 15:37
--- NOTE | 2021-10-26 16:38 | EKG ---
[facility] [address] [place] [id number] Test Date: 2021-10-26 Test Time: 11:57:18 Pat Name: EDGAR ANDRADE Department: Room: Gender: F Tow Feeder: : 1955 Requested By: BETZAIDA Fenton Number: [id number] Reading MD: Hunter Jett Measurements Intervals [place] Rate: 94 P: 27 DE: 148 QRS: -58 QRSD: 134 T: 7 QT: 406 QTc: 514 Interpretive Statements SINUS RHYTHM ABNORMAL LEFT AXIS DEVIATION LEFT ANTERIOR FASCICULAR BLOCK RIGHT BUNDLE BRANCH BLOCK BIFASCICULAR BLOCK ABNORMAL ECG Electronically Signed On 10-27-2021 14:46:48 CDT by Hunter Jett
== END 2021-10-26 15:40 | disposition home or self-care (01) ==
LOC: ER 11:27
DX: R55 Syncope and collapse (principal); I48.91 Unspecified atrial fibrillation; J45.909 Unspecified asthma, uncomplicated; E11.9 Type 2 diabetes mellitus without complications; E78.00 Pure hypercholesterolemia, unspecified; I10 Essential (primary) hypertension; Z86.73 Personal history of transient ischemic attack (TIA), and cerebral infarction without residual deficits; Z90.49 Acquired absence of other specified parts of digestive tract; Z88.1 Allergy status to other antibiotic agents; Z88.8 Allergy status to other drugs, medicaments and biological substances
CPT/HCPCS: 36415; 71045; 71275; 80053; 83735; 83880; 84484; 85025; 85379; 93005; 96360; 99285; J7030; Q9967